=== PATIENT | female | born 1980 | race African-American/Black ===

== ENCOUNTER 2017-01-28 01:40 | Emergency (ER) | payer OTHER ==
[2017-01-28 01:57] VITALS: BMI 27.1
[2017-01-28 02:39] VITALS: BP 113/69; PULSE 87; TEMP 97.7
== END 2017-01-28 03:00 | disposition home or self-care (01) ==
LOC: JER 01:40
DX: O26.892 Other specified pregnancy related conditions, second trimester (principal); Z3A.25 25 weeks gestation of pregnancy
CPT/HCPCS: 99281-25

== ENCOUNTER 2017-05-03 21:55 | Inpatient (IN) | payer OTHER ==
[2017-05-03] MEDS ORDERED: CLINDAMYCIN PHOSPHATE 600 MG/4 ML VIAL ONE (22:39)
[2017-05-03] MEDS ORDERED: CLINDAMYCIN 900 MG PREMIX IVPB 900 MG/50 ML BAG IVPB ONE (22:45)
[2017-05-03 22:50] LABS: BASO % 0.2 % (0-2.0); EOS % 0.4 % (0-4.5); HEMATOCRIT 36.1 % (32.4-45.2); HEMOGLOBIN 11.5 GM/dL (10.7-15.3); LYMPH % 11.8 % (8-40); MCH 24.3 pg (25.7-33.7); MCHC 31.9 g/dl (32.0-36.0); MEAN CELL VOLUME 76.3 fl (80-96); MEAN PLT VOLUME 8.7 fl (7.5-11.1); MONO % 11.9 % (3.8-10.2); NEUT % 75.7 % (42.8-82.8); PLATELET COUNT 325 K/MM3 (134-434); RBC 4.73 M/mm3 (3.60-5.2); WHITE BLOOD COUNT 13.5 K/mm3 (4.0-10.0)
[2017-05-03 23:04] LABS: INR 0.91 (0.82-1.09); PROTHROMBIN TIME (PATIENT) 10.3 SEC (9.98-11.88)
[2017-05-03 23:07] LABS: ACTIVATED PTT 29.2 SECONDS (26.9-34.4)
[2017-05-03 23:32] LABS: ANION GAP 10 (8-16); BLOOD UREA NITROGEN 7 mg/dL (7-18); CALCIUM 8.6 mg/dL (8.5-10.1); CHLORIDE 103 mmol/L (98-107); CO2 23 mmol/L (21-32); CREATININE 0.6 mg/dL (0.55-1.02); GLUCOSE,RANDOM 85 mg/dL (74-106); POTASSIUM 4.2 mmol/L (3.5-5.1); SODIUM 136 mmol/L (136-145)
[2017-05-04 00:05] VITALS: BMI 31.8
[2017-05-04] MEDS ORDERED: FENTANYL/BUPIVACAINE/NS/PF - PCEA - 50 ML DISP.SYRIN EP ONE (02:39)
[2017-05-04] MEDS: ELECTROLYTE-148 SOLN 1,000 ML IV SCH ×2 (03:00→07:40)
[2017-05-04] MEDS ORDERED: NALOXONE HCL 0.4 MG/ML VIAL IVPUSH PRN (03:41)
[2017-05-04] MEDS ORDERED: FENTANYL/BUPIVACAINE/NS/PF - PCEA - 50 ML DISP.SYRIN EP SCH (03:45)
[2017-05-04] MEDS ORDERED: CLINDAMYCIN 600MG PREMIX IVPB 600 MG/50 ML BAG IVPB SCH (05:00)
[2017-05-04] MEDS ORDERED: CLINDAMYCIN PHOSPHATE 600 MG/4 ML VIAL ONE (05:00)
--- NOTE | 2017-05-04 06:00 | HP ---
Past Medical History - Primary Care Physician PCP:: Gini Luong - Admission Chief Complaint: Spontaneous rupture of membranes History of Present Illness: 36 yo edc 05/12/17 ega 38.5 week with SROM with meconium History Source: Patient - Past Medical History ...: 2 ...Para: 0 ...Term: 0 ...: 0 ...Spon : 0 ...Induced : 1 ...Multiple Gestation: 0 ...LMP: 08/07/16 ... Weeks Gestation by Dates: 38.3 ...EDC by Dates: 05/14/17 ...EDC by Sono: 05/12/17 - Past Surgical History Past Surgical History: Yes: None Hx Myomectomy: No Hx Transabdominal Cerclage: No - Smoking History Smoking history: Never smoked Have you smoked in the past 12 months: No Aproximately how many cigarettes per day: 0 - Alcohol/Substance Use Hx Alcohol Use: No History of Substance Use: reports: None - Social History History of Recent Travel: No Home Medications - Allergies Allergies/Adverse Reactions: Allergies Allergy/AdvReac Type Severity Reaction Status Date / Time cheese Allergy Nausea Verified 05/04/17 01:23 metoclopramide [From Reglan] Allergy Difficulty Verified 05/04/17 01:20 Breathing Penicillins Allergy Difficulty Verified 05/04/17 01:25 Breathing tomato Allergy Itching Verified 05/04/17 01:23 tuberculin,PPD,multi-puncture Allergy Itching Verified 05/04/17 01:22 - Home Medications Home Medications: Ambulatory Orders Pnv 29-1 Tablet 1 tab PO DAILY 05/04/17 Valacyclovir HCl [Valtrex] 1 tab PO DAILY 05/04/17 Physical Exam - Maternity Vital Signs: Vital Signs Temperature 98.7 F 05/04/17 05:00 Pulse Rate 91 H 05/04/17 05:00 Respiratory Rate 20 05/04/17 05:00 Blood Pressure 111/76 05/04/17 05:00 O2 Sat by Pulse Oximetry (%) 98 05/04/17 05:00 Constitutional: Yes: Well Nourished, No Distress Neck: Yes: WNL Lungs: Clear to auscultation Breast(s): Yes: WNL - Abdominal Exam/OB Fundal Height: 40 Number of Fetuses: Single Presentation: Vertex Contractions: Yes Regularity: Regular Monitor Mode: External Heart Rate (range): 160 Category: II - Vaginal Exam/OB Dilatation (cm): 2 Effacement (%): 90 Amniotic Membrane Status: Ruptured Meconium: Light Presentation: Vertex/Position - Physical Exam Musculoskeletal: Yes: WNL Extremities: Yes: WNL Edema: No Psychiatric: Yes: WNL, Alert, Oriented - Labs Lab Results: CBC, BMP 05/03/17 22:35 05/03/17 22:35 Hemorrhage Risk Assessment - Risk Factors Risk Score: 0 Risk Level: Low Risk Assessment/Plan IUP @38.5 week SROM - mec Ho 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
[2017-05-04] MEDS ORDERED: METHYLERGONOVINE MALEATE 0.2 MG/1 ML AMP IM PRN (06:15)
[2017-05-04] MEDS ORDERED: WITCH HAZEL 50% (TUCKS) 40 PAD/JAR PAD TP PRN (06:15)
--- NOTE | 2017-05-04 06:15 | PN ---
Ante-Partal Exam - Subjective Subjective: Pt SP epidural Vital Signs: Vital Signs Temperature 98.7 F 05/04/17 05:00 Pulse Rate 91 H 05/04/17 05:00 Respiratory Rate 20 05/04/17 05:00 Blood Pressure 111/76 05/04/17 05:00 O2 Sat by Pulse Oximetry (%) 98 05/04/17 05:00 Bleeding: No Headache: No Visual changes: No Right upper quadrant pain: No - Contractions Contractions: Yes Regularity: Regular Intensity: Moderate Monitor Mode: External - Exam during Labor Variability: Moderate Category: II Monitor Accelerations: Absent Monitor Decelerations: Early Exam: Vaginal Dilatation (cm): 2 Effacement (%): 100 Amniotic Membrane Status: Ruptured Meconium Staining: Light Station: -1 - Intrapartum Hemorrhage Risk Risk Score: 1 Risk Level: Medium Risk - Assessment/Plan Assessment/Plan: Failure to Progress Cat 2 tracing Non reasurring tracing Plan Primary Section
--- NOTE | 2017-05-04 06:30 | OP ---
Operative Note - Note: Operative Date: 05/04/17 Pre-Operative Diagnosis: Failure to progress. Nonreassuring Tracing Operation: Primary low transverse Section Findings: Live delivered Post-Operative Diagnosis: Same as Pre-op Surgeon: Gini Luong [employer] Sales Representative: Edwin Reynoso Anesthesiologist/CREW CALLER: Vinnie Ellsworth Anesthesia: Epidural Estimated Blood Loss (mls): 600 Operative Report Dictated: Yes
[2017-05-04] MEDS ORDERED: MEPERIDINE HCL CARPU-JECT 50 MG/1 ML DISP.SYRIN ONE (06:32)
[2017-05-04] MEDS ORDERED: morphine SULFATE/Preservative Free 0.5 MG/ML (1cc Syringe) EP ONE (06:59)
[2017-05-04] MEDS ORDERED: ONDANSETRON 4 MG/2 ML VIAL IVPUSH PRN (06:59)
[2017-05-04] MEDS ORDERED: OXYTOCIN 20 UNITS in 0.9% NS 20 UNIT/1,000 ML INFUS.BAG IV ONE (07:27)
[2017-05-04] MEDS: OXYTOCIN 20 UNITS in 0.9% NS 20 UNIT/1,000 ML INFUS.BAG IV SCH ×2 (07:30→17:30)
--- NOTE | 2017-05-04 07:40 | OP ---
DATE OF OPERATION: 05/04/2017 PREOPERATIVE DIAGNOSIS: Failure to progress, nonreassuring tracing. OPERATION: Primary low-transverse section. FINDINGS: Live male infant delivered in OT position. POSTOPERATIVE DIAGNOSIS: Failure to progress, nonreassuring tracing. SURGEON: Gini Luong MD BORDER MEASURER: CASTILLO Pardo ANESTHESIOLOGIST: Vinnie Ellsworth MD ANESTHESIA: Epidural. ESTIMATED BLOOD LOSS: 600 mL. PROCEDURE: Patient was taken to the operating room, placed in supine position, prepped and draped in the usual sterile fashion. After epidural anesthesia had been given, a timeout was done in accordance with hospital regulation. Pfannenstiel skin incision was made with a scalpel. Cautery was then used to go through the layers of the abdominal wall to the level of the fascia. Fascia was cut in the midline and cautery was then used to open the fascia in smiling fashion. Vj was then used to bluntly and sharply dissect the rectus muscle off the fascia. Muscle split in the midline. Peritoneal cavity was then entered and carried upward and downward. Bladder retractor was then placed. Scalpel was then used to make a low-transverse uterine incision. Incision was carried up with the use of bandage scissors. A live male was delivered in OT position. Nose and mouth suction performed. Shoulders were delivered without difficulty. Cord was clamped and cut. Cord pH was then done. Delayed cord clamping was done for about 30 seconds. Infant was handed to tableau analyst. Meconium was noted. Uterus was exteriorized. Placenta was manually extracted from the uterus. Uterus was cleaned with clean lap pads. Uterine incision then closed using 0 Biosyn suture, 1st layer continuous locking, 2nd layer imbricating the 1st layer. Tubes and ovaries were noted to be within normal limits. Uterus interiorized. Abdominal cavity cleaned with clean lap pads. Peritoneum closed using 0 Biosyn suture. Fascia was then closed using 0 Vicryl suture in 2 parts. The ski was then closed using 3-0 Vicryl in subcuticular fashion. Wound was washed and dressed. Patient tolerated procedure well. Estimated blood loss 600 mL. Edgardo [id number]
[2017-05-04 08:36] LABS: ARTERIAL BLD GAS O2 SATURATION 52.1 % (90-98.9); ARTERIAL BLOOD GAS BASE EXCESS -5.6 meq/l (-2-2); ARTERIAL BLOOD GAS PCO2 52.3 mmHg (35-45); ARTERIAL BLOOD GAS pH 7.25 (7.35-7.45)
[2017-05-04 08:41] LABS: ALLENS TEST POSITIVE
[2017-05-04 08:42] LABS: VENOUS PC02 41.8 mmHg (38-52); VENOUS PH 7.35 (7.32-7.42)
[2017-05-04] MEDS ORDERED: IBUPROFEN 800 MG/8 ML IJ IVPB PRN ×2 (10:16→10:27)
[2017-05-05] MEDS: ACETAMINOPHEN 325 MG TABLET (FP) PO PRN ×3 (01:07→21:08)
[2017-05-05] MEDS: SIMETHICONE 80 MG TAB.CHEW (FP) PO PRN ×3 (01:07→21:01)
[2017-05-05] MEDS: IBUPROFEN 600 MG TABLET (FP) PO PRN ×3 (01:08→21:01)
[2017-05-05] MEDS ORDERED: oxyCODONE HCL 5 MG TABLET PO PRN (06:15)
[2017-05-05] MEDS ORDERED: BISACODYL 10 MG SUPP.RECT RC PRN (06:15)
[2017-05-05 07:47] LABS: BASO % 0.4 % (0-2.0); EOS % 0.2 % (0-4.5); HEMATOCRIT 29.2 % (32.4-45.2); MCH 24.1 pg (25.7-33.7); MCHC 30.9 g/dl (32.0-36.0); MEAN CELL VOLUME 78.3 fl (80-96); MEAN PLT VOLUME 8.7 fl (7.5-11.1); MONO % 9.3 % (3.8-10.2); NEUT % 79.1 % (42.8-82.8); PLATELET COUNT 253 K/MM3 (134-434); RBC 3.73 M/mm3 (3.60-5.2); RDW 17.6 % (11.6-15.6); WHITE BLOOD COUNT 15.8 K/mm3 (4.0-10.0)
--- NOTE | 2017-05-05 08:27 | PN ---
Progress Note (SOAP) - Current Medications Current Medications: Active Medications Acetaminophen (Tylenol -) 650 mg PO Q4H PRN PRN Reason: FEVER Last Admin: 05/05/17 01:07 Dose: 650 mg Bisacodyl (Dulcolax Suppository -) 10 mg RC PRN PRN PRN Reason: CONSTIPATION Diphenhydramine HCl (Benadryl Injection -) 25 mg IVPUSH Q4H PRN PRN Reason: Pruritis Last Admin: 05/04/17 18:09 Dose: 25 mg Diphtheria/Tetanus/Acell Pertussis (Boostrix -) 0.5 ml IM .ONCE ONE Stop: 05/05/17 10:01 Oxytocin/Sodium Chloride (Normal Saline+20 Units Oxytocin -) 20 unit in 1,000 mls @ 125 mls/hr IV ASDIR MIKHAIL Last Admin: 05/04/17 17:30 Dose: 125 mls/hr Ibuprofen (Motrin -) 600 mg PO Q4H PRN PRN Reason: PAIN Last Admin: 05/05/17 01:08 Dose: 600 mg Ibuprofen (Caldolor Injection -) 800 mg IVPB Q6H PRN PRN Reason: FEVER Last Admin: 05/04/17 09:55 Dose: 800 mg Influenza Virus Vaccine Quadrival (Fluarix Quad [id number] Syringe) 60 mcg IM .ONCE ONE Stop: 05/05/17 10:01 Methylergonovine Maleate (Methergine Injection -) 0.2 mg IM Q4H PRN PRN Reason: Excessive Bleeding (L&D) Naloxone HCl (Narcan -) 0.4 mg IVPUSH PRN PRN PRN Reason: Sedation Ondansetron HCl (Zofran Injection) 4 mg IVPUSH Q4H PRN PRN Reason: NAUSEA Oxycodone HCl (Roxicodone -) 5 mg PO Q4H PRN PRN Reason: PAIN LEVEL 1-5 Oxycodone HCl (Roxicodone -) 10 mg PO Q4H PRN PRN Reason: PAIN LEVEL 6-10 Multivit/Folic Acid/Iron ( Vitamins (Sjr) -) 1 tab PO DAILY MIKHAIL Simethicone (Mylicon -) 80 mg PO Q4H PRN PRN Reason: GAS Last Admin: 05/05/17 01:07 Dose: 80 mg Witch Yadira/Glycerin (Tucks Pads -) 1 pad TP PRN PRN PRN Reason: PAIN - Objective Vital Signs: Vital Signs Temperature 97.3 F L 05/05/17 06:00 Pulse Rate 71 05/05/17 06:00 Respiratory Rate 18 05/05/17 06:00 Blood Pressure 95/46 05/05/17 06:00 O2 Sat by Pulse Oximetry (%) 98 05/04/17 08:27 Constitutional: Yes: Well Nourished, No Distress Breast(s): Yes: WNL Musculoskeletal: Yes: WNL Extremities: Yes: WNL Wound/Incision: Yes: Clean/Dry, Dressing Dry and Intact Neurological: Yes: WNL, Alert, Oriented Labs Lab Results: CBC, BMP 05/05/17 06:53 05/03/17 22:35 Assessment/Plan POD 1 Stable Plan OOB Percocet/motrin prn
[2017-05-05] MEDS: PRENATAL VITAMINS W/ FOLIC ACID TABLET (FP) PO SCH (09:30)
[2017-05-05] MEDS ORDERED: FLU VACC QS2017-18 36MOS UP/PF 60 MCG/0.5 ML SYRINGE IM ONE (10:00)
[2017-05-05] MEDS ORDERED: DIPHTH,PERTUSS(ACELL),TET 0.5 ML DISP.SYRIN IM ONE (10:00)
--- NOTE | 2017-05-05 10:55 | PN ---
Progress Note (short form) - Note Progress Note: Anesthesia post op note, POD#1 S/P , under epidural. Pat seen and examined. VSS. No apparent post anesthesia complications. Signed off.
[2017-05-05] MEDS: oxyCODONE HCL 5 MG TABLET PO PRN (22:39)
[2017-05-06] MEDS: oxyCODONE HCL 5 MG TABLET PO PRN ×3 (09:02→23:43)
[2017-05-06] MEDS: SIMETHICONE 80 MG TAB.CHEW (FP) PO PRN ×3 (09:02→23:43)
[2017-05-06] MEDS: PRENATAL VITAMINS W/ FOLIC ACID TABLET (FP) PO SCH (09:02)
[2017-05-06] MEDS: ACETAMINOPHEN 325 MG TABLET (FP) PO PRN ×3 (09:02→23:43)
[2017-05-07 08:39] LABS: HEMATOCRIT 29.2 % (32.4-45.2); MCHC 30.9 g/dl (32.0-36.0); MEAN CELL VOLUME 77.6 fl (80-96); MEAN PLT VOLUME 7.9 fl (7.5-11.1); PLATELET COUNT 357 K/MM3 (134-434); RBC 3.76 M/mm3 (3.60-5.2); RDW 17.3 % (11.6-15.6)
[2017-05-07] MEDS: PRENATAL VITAMINS W/ FOLIC ACID TABLET (FP) PO SCH (09:34)
[2017-05-07 12:33] LABS: ANISOCYTOSIS 1+; MACROCYTOSIS 0; OVALOCYTE 1+; PLATELET ESTIMATE NORMAL
[2017-05-07] MEDS: ACETAMINOPHEN 325 MG TABLET (FP) PO PRN ×2 (12:46→21:56)
[2017-05-07] MEDS: oxyCODONE HCL 5 MG TABLET PO PRN ×2 (12:47→21:56)
[2017-05-07] MEDS: SIMETHICONE 80 MG TAB.CHEW (FP) PO PRN ×2 (12:48→21:56)
--- NOTE | 2017-05-07 12:57 | PN ---
Post Progress Note - Subjective Subjective: 36 yo Para 1 status post primary , seen and evaluated. Doing well. Post Day: 3 Type of Delivery: Primary C/S Vital Signs: Vital Signs Temperature 98.9 F 05/06/17 22:00 Pulse Rate 85 05/06/17 22:00 Respiratory Rate 20 05/06/17 22:00 Blood Pressure 117/70 05/06/17 22:00 O2 Sat by Pulse Oximetry (%) 98 05/04/17 08:27 Breast Exam: Yes: Soft Uterus: Yes: Fundus Firm Incision: Yes: Sutures intact Abdomen/GI: Yes: Abdomen soft, Tolerating PO Lochia: Yes: Rubra Lochia, amount: Small Extremities: Yes: Calves non-tender Perineum: Yes: Intact Activity: Ambulating - Labs Labs: CBC WBC 11.0 K/mm3 (4.0-10.0) H D 05/07/17 08:00 RBC 3.76 M/mm3 (3.60-5.2) 05/07/17 08:00 Hgb 9.0 GM/dL (10.7-15.3) L 05/07/17 08:00 Hct 29.2 % (32.4-45.2) L 05/07/17 08:00 MCV 77.6 fl (80-96) L 05/07/17 08:00 MCH 24.0 pg (25.7-33.7) L 05/07/17 08:00 MCHC 30.9 g/dl (32.0-36.0) L 05/07/17 08:00 RDW 17.3 % (11.6-15.6) H 05/07/17 08:00 Plt Count 357 K/MM3 (134-434) D 05/07/17 08:00 MPV 7.9 fl (7.5-11.1) 05/07/17 08:00 Neutrophils % No Result Required. 05/07/17 08:00 Neutrophils % (Manual) 74.5 % (42.8-82.8) 05/07/17 08:00 Band Neutrophils % 2.0 % 05/07/17 08:00 Lymphocytes % No Result Required. 05/07/17 08:00 Lymphocytes % (Manual) 12.3 % (8-40) 05/07/17 08:00 Monocytes % 9.3 % (3.8-10.2) 05/05/17 06:53 Monocytes % (Manual) 7 % (3.8-10.2) 05/07/17 08:00 Eosinophils % 0.2 % (0-4.5) 05/05/17 06:53 Eosinophils % (Manual) 3.1 % (0-4.5) 05/07/17 08:00 Basophils % 0.4 % (0-2.0) 05/05/17 06:53 Basophils % (Manual) 0.0 % (0-2.0) 05/07/17 08:00 Myelocytes % (Man) 1 % (0-2) 05/07/17 08:00 Metamyelocytes 0 % (0-2) 05/07/17 08:00 Hypochromia 1+ 05/07/17 08:00 Platelet Estimate Normal 05/07/17 08:00 Polychromasia 1+ 05/07/17 08:00 Poikilocytosis 1+ 05/07/17 08:00 Anisocytosis 1+ 05/07/17 08:00 Microcytosis 1+ 05/07/17 08:00 Macrocytosis 0 05/07/17 08:00 Ovalocytes 1+ 05/07/17 08:00 Problem List - Problems (1) Status post primary low transverse section Code(s): Z98.891 - HISTORY OF UTERINE SCAR FROM PREVIOUS SURGERY Assessment/Plan Status post primary Stable Continue routine post op care
--- NOTE | 2017-05-08 05:48 | DS ---
Physical Exam-PEDIATRIC CNS Vital Signs: Vital Signs Temperature 98.5 F 05/07/17 20:35 Pulse Rate 96 H 05/07/17 20:35 Respiratory Rate 20 05/07/17 20:35 Blood Pressure 118/69 05/07/17 20:35 O2 Sat by Pulse Oximetry (%) 98 05/04/17 08:27 Constitutional: Yes: Well Nourished Eyes: Yes: Conjunctiva Clear HENT: Yes: Atraumatic Neck: Yes: Supple Cardiovascular: Yes: Regular Rate and Rhythm Respiratory: Yes: Regular, CTA Bilaterally Gastrointestinal: Yes: Normal Bowel Sounds External Genitalia: Yes: Normal Vaginal Exam: Yes: Normal Cervix: Yes: Normal Uterus: Yes: Firm Wound/Incision: Yes: Well Approximated Neurological: Yes: Alert, Oriented ...Motor Strength: WNL Psychiatric: Yes: Alert, Oriented Labs: CBC, BMP 05/07/17 08:00 05/03/17 22:35 Delivery - Delivery Type of Anesthesia: Epidural Episiotomy/Laceration: None EBL (cc): 500 Delivery, Single - Stages of Labor Date 1st Stage Initiatied: 05/03/17 Time 1st Stage Initiated: 21:30 Date 2nd Stage Initiated: 05/04/17 Time 2nd Stage Initiated: 03:00 Date of Delivery: 05/04/17 Time of Delivery: 06:39 Time Placenta Delivered: 06:40 - 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 Present: Yes Name: Daniel Hargrove Gender: Male Weight: 8 lb 8 oz Position: Left, OA Total Hours ROM (Hrs/Mins): 9 HOURS/ 39 MINUTES - 1 Minute Total Score: 9 5 Minutes Total Score: 9 - Independence Feeding Plan Initial Plan: Exclusive throughout hospitalization Discharge Summary Reason For Visit: LABOR Current Active Problems Status post primary low transverse section (Acute) Procedures: Principal: Primary Low Transverse Hospital Course: Routine post op care Condition: Good - Instructions Diet, Activity, Other Instructions: Physical activity Resume your normal everyday activity as tolerated no heavy lifting or exercise until seen by your surgeon. You may walk unlimited lesley of and climb stairs. You may resume driving the car when you feel safe and comfortable behind the wheel. No sexual activity as instructed. Wound care If you have a bandage, leave it on, and keep dry for 48-72 hours. After that time discard the outer bandage. If they are tapes on the skin under the out of bandage leave them in place. They will peel off in the next 7 to 10 days. Do Not Peel them off. You may shower the day after surgery. If there are tapes present on the skin, you may shower over them. Diet There are no dietary restrictions. Eat healthy, high-fiber foods. Drink 6 to 8 glasses of liquid each day. This will assist in keeping your bowels are regular. Pain management You may take Tylenol or acetaminophen or Ibuprofen (for example, Motrin, Advil etc.) from my pain prescription medication is ordered should be taken as prescribed for moderate to severe pain. Call MD for any of the following: Severe pain not relieved by medication Fever of 101 or higher Excessive bleeding or drainage on dressing Inability to urinate Referrals: Gini Luong MD [Staff Physician] - Disposition: HOME - Home Medications Comprehensive Discharge Medication List: Ambulatory Orders Pnv 29-1 Tablet 1 tab PO DAILY 05/04/17 Valacyclovir HCl [Valtrex] 1 tab PO DAILY 05/04/17 Ibuprofen [Motrin -] 600 mg PO QID #28 tablet 05/05/17
[2017-05-08] MEDS: PRENATAL VITAMINS W/ FOLIC ACID TABLET (FP) PO SCH (11:43)
[2017-05-08 14:49] VITALS: BP 108/67; PULSE 82; TEMP 98
== END 2017-05-08 14:00 | disposition home or self-care (01) | DRG 766 ==
LOC: JLDR 21:55 → J3W 05-04 08:50
PROVIDERS: ADMIT Obstetrics & Gynecology; ATTEND Obstetrics & Gynecology
PROC: 10D00Z1 Extraction of Products of Conception, Low, Open Approach (ICD-10-PCS; principal; 2017-05-04)
DX: O62.0 Primary inadequate contractions (principal); O76 Abnormality in fetal heart rate and rhythm complicating labor and delivery; Z3A.38 38 weeks gestation of pregnancy; Z37.0 Single live birth; Z98.891 History of uterine scar from previous surgery
CPT/HCPCS: 36415; 36600; 71046-TC; 80048; 82803; 85025; 85610; 85730; 86593; 86850; 86900; 86901; 87389; 90686; 90715